=== PATIENT | female | born 1980 | race Caucasian/White ===

== ENCOUNTER 2018-05-10 13:45 | Emergency (ER) | payer OTHER ==
[~2018-05-10] VITALS: Ht 167.6 cm; Wt 90.9 kg
[2018-05-10 13:51] VITALS: BP 132/85
[2018-05-10] MEDS ORDERED: KETOROLAC 30 MG/1 ML IVPush ONE (15:30)
[2018-05-10] MEDS ORDERED: SODIUM CHLORIDE FLUSH 10ML SYR IVF ONE (15:30)
[2018-05-10 15:43] LABS: BASOPHILS # (AUTO) 0.04 x10^3/uL (0-0.1); BASOPHILS % (AUTO) 0 % (0-1); EOSINOPHILS # (AUTO) 0.27 x10^3/uL (0-0.4); EOSINOPHILS % (AUTO) 3 % (1-7); LYMPHOCYTES # (AUTO) 2.75 x10^3/uL (1-3.4); LYMPHOCYTES % (AUTO) 28 % (22-44); MD NO; MEAN CORPUSCULAR HEMOGLOBIN 33.9 pg (27.0-34.8); MEAN CORPUSCULAR HGB CONC 34.3 g/dL (32.4-35.8); MEAN CORPUSCULAR VOLUME 98.9 fL (80-100); MONOCYTES # (AUTO) 0.58 x10^3/uL (0.2-0.8); MONOCYTES % (AUTO) 6 % (2-9); NEUTROPHILS # (AUTO) 6.29 x10^3/uL (1.8-6.8); NEUTROPHILS % (AUTO) 63 % (42-75); PLATELET COUNT 248 x10^3/uL (130-400); RED BLOOD COUNT 4.02 x10^6/uL (3.82-5.3); RED CELL DISTRIBUTION WIDTH 13.3 % (9.6-15.2)
[2018-05-10] MEDS ORDERED: KETOROLAC 30 MG/1 ML ONE (15:45)
[2018-05-10 15:50] LABS: ALBUMIN 3.6 g/dL (3.4-5.0); ANION GAP 7 mmol/L (5-15); CALCIUM 8.7 mg/dL (8.5-10.1); CHLORIDE 109 mmol/L (98-107)
[2018-05-10 15:53] LABS: TROPONIN I < 0.015 ng/mL (0.000-0.045)
== END 2018-05-10 17:33 | disposition home or self-care (01) ==
LOC: ED 17:27
DX: M25.511 Pain in right shoulder (principal); R07.9 Chest pain, unspecified; R06.02 Shortness of breath
CPT/HCPCS: 36415; 71045; 73030; 80048; 82040; 84484; 84703; 85025; 85379; 93005; 96374; 99285; J1885

== ENCOUNTER 2019-05-25 09:10 | Emergency (ER) | payer BC, OTHER ==
[~2019-05-25] VITALS: Ht 167.6 cm; Wt 90.8 kg
[2019-05-25 12:16] VITALS: BP 108/69
== END 2019-05-25 12:17 | disposition home or self-care (01) ==
LOC: ED 11:29
DX: K29.00 Acute gastritis without bleeding (principal); Z98.51 Tubal ligation status
CPT/HCPCS: 36415; 74021; 80053; 83690; 84703; 85025; 99284; Q0162

== ENCOUNTER 2019-12-18 16:19 | Emergency (ER) | payer OTHER ==
[~2019-12-18] VITALS: Ht 165.1 cm; Wt 87.7 kg
[~2019-12-18 16:19] MED LIST: IBUP200T64 PO; NAPR220C2 PO
--- NOTE | 2019-12-18 16:44 | NUR ---
PT HERE WITH MULTIPLE COMPLAINTS INCLUDING POSSIBLE UTI, COUGH, SUBJECTIVE FEVER AT HOME, CHILLS, NAUSEA, VOMITTING, AND BODY ACHES. PT AAO X 4, NAD, ROOM AIR, CALL LIGHT WITHIN REACH. DRESSED IN GOWN AND ATTACHED TO MONITOR, SIDERAIL X [address] PT AMBULATORY WITH STEADY GAIT TO RESTROOM FOR URINE SAMPLE. UA LABELLED AND WALKED TO LAB.
[2019-12-18 16:57] VITALS: BP 102/78
--- NOTE | 2019-12-18 17:10 | NUR ---
AT BEDSIDE FOR EXAM.
[2019-12-18] MEDS ORDERED: KETOROLAC 30 MG/1 ML IM ONE (17:30)
--- NOTE | 2019-12-18 17:33 | NUR ---
PT TO XRAY.
[2019-12-18 17:36] LABS: CULTURE INDICATED? YES; MICROSCOPIC INDICATED
--- NOTE | 2019-12-18 17:46 | NUR ---
PT BACK FROM XRAY.
[2019-12-18 17:48] LABS: RAPID INFLUENZA A Negative (Negative); RAPID INFLUENZA B Negative (Negative)
[2019-12-18] MEDS ORDERED: KETOROLAC 30 MG/1 ML ONE (18:00)
--- NOTE | 2019-12-18 18:05 | NUR ---
PT MEDICATED PER ORDERS.
[2019-12-18] MEDS ORDERED: CEFTRIAXONE 1,000 MG IM ONE (20:00)
[2019-12-18] MEDS ORDERED: CEFTRIAXONE 1,000 MG ONE (20:01)
--- NOTE | 2019-12-18 20:08 | NUR ---
PT MEDICATED PER ORDERS.
--- NOTE | 2019-12-18 20:08 | NUR ---
Patient/Caregiver given discharge instructions and they have confirmed that they understand the instructions. Patient ambulatory with steady gait.
== END 2019-12-18 20:13 | disposition home or self-care (01) ==
LOC: ED 17:55
DX: N30.00 Acute cystitis without hematuria (principal); B34.9 Viral infection, unspecified; H92.01 Otalgia, right ear
CPT/HCPCS: 71046; 81001; 87086; 87400; 96372; 99284; J0696; J1885

== ENCOUNTER 2019-12-23 09:05 | Outpatient (CLI) | payer OTHER ==
[2019-12-23] MEDS ORDERED: GADOTERATE 10 MMOL/20 ML SYR ONE (18:10)
== END 2019-12-23 23:59 | disposition home or self-care (01) ==
LOC: RAD 09:05
PROVIDERS: ATTEND Specialist
DX: R10.2 Pelvic and perineal pain (principal); Z90.721 Acquired absence of ovaries, unilateral
CPT/HCPCS: 72197; A9575